=== PATIENT | female | born 2005 | race Hispanic/Latino ===

== ENCOUNTER 2024-11-28 00:08 | Emergency (ER) | payer OTHER ==
--- OUTSIDE RECORDS SUMMARY | 2024-11-28 00:12 | XMS REPORT | Continuity of Care Document ---
Author Name Unknown Address [address] [facility] [address] [place] [address] [facility] [place] Address [address] [facility] [place] [address] Care Team Providers Care Office Coordinator Receptionist Name Role Phone PCP, PATIENT DOES NOT HAVE A Primary Care Physic estrellita Unavailable CHARITY IVEY Attending Clinician Unavailable CHARITY IVEY Attending Clinician Unavailable Charity Ivey MD Attending Clinician [phone], Ad[facility] Attending Clinician Unavailable Margarito Mendes MD Attending Clinician [phone] Only, Ang Db Test Attending Clinician Unavailabl Aminah Castillo Attending Clinician [phone] AMINAH HARRIS Attending Clinician Unavailable Doctor Unassigned, [place] Attending Clinician U navailBridgette Schaeffer Attending Clinician [phone] Tin Barajas Attending Clinician [phone] Pcp, Patient Does Not Have A Attending Clinician Lab, Adc Fam Pob I Attending Clinician Unavailab Mary Sanchez PA-C Attending Clinician [phone] Raju_P Attending Clinician Unavailable Raju_P Admitting Clinician Unavailable Payers Payer Name Policy Type Policy Number Effective Date Expirati on Date Source [employer] MEDICAID [id number] 2012 00:00:00 [place] [id number] 2024 00:00:00 Problems Condition Name Condition Details Condition Category Status Onset Date Resolution Date Last Treatment Date Treating Clinician Comments Source Bipolar disorder Bipolar disorder Disease Active 03-14 00:00: 00 [facility] Headache Headache Disease Active 03-14 00:00: 00 Overview: Formattin g of this note might be different from the original. ICD10 Diagnosis Term [employer] [facility] Vertigo Vertigo Disease Active 03-14 00:00: 00 [facility] Sensorineu ral hearing loss, bilateral Sensorineu ral hearing loss, bilateral Disease Active 03-20 00:00: 00 [facility] Allergies, Adverse Reactions, Alerts Allergy Name Allergy Type Status Severity Reaction(s) Onset Date Inactive Date Treating Clinician Comments Source NO KNOWN ALLERGIE S Drug Class Active [facility] Social History Social Habit Start Date Stop Date Quantity Comments Source ASSERTION 2024-10-04 00:00:00 Not [facility] Al[facility] beverage intake 2024-11-21 00:00:00 2024-11-21 00:00:00 Ex-drinker (finding) [facility] History of Social function 2024-11-08 00:00:00 2024-11-08 00:00:00 [facility] Exposure to SARS-CoV-2 (event) 2021-08-03 00:00:00 2021-09-02 09:32:00 Yes [facility] Sex assigned at 2004 00:00:00 2005 00:00:00 [facility] Smoking Status Start Date Stop Date Source Never smoked tobacco [facility] Medications Ordered Medication Name Filled Medication Name Start Date Stop Date Current Medication? Ordering Clinician Indication Dosage Frequency Signature (SIG) Comments Components Source GUAIFENESIN /CODEINE PHOSPHATE (ROBITUSSIN A-C ORAL) 11-08 15:25: 08 11-08 00:00 :00 No Take by mouth. [facility] methylpheni date (CONCERTA) 54 mg 24 hr tablet 11-08 15:24: 29 11-08 00:00 :00 No 54mg Take 54 mg by mouth every morning. [facility] levoFLOXaci n (LEVAQUIN) tablet 500 mg 03-15 03:00: 00 03-15 02:10 :00 No 500mg 500 mg, Oral, ONCE, 1 dose, 03/14/20 at 2200, GLORY
Re ason for Anti-Infec tive: Empiric Non-Surgic al Prophylaxi s
Durat ion of therapy: 72 hours
S pecific indication : stepped on nail, through sole of shoe [facility] levoFLOXaci n (LEVAQUIN) 500 mg tablet 03-14 00:00: 00 03-18 04:59 :00 No [id number] 500mg Take 1 tablet by mouth every 24 (twenty-fo ur) hours for 3 days. [facility] propranolol (INDERAL) 20 mg tablet 11-11 00:00: 00 11-08 00:00 :00 No [id number] 20mg Take 1 Tab by mouth 2 (two) times daily. [facility] citalopram (CELEXA) 10 mg tablet 2014-08 19:38: 15 Yes [id number] 10mg Take 10 mg by mouth daily. [facility] methylpheni date (CONCERTA) 54 mg 24 hr tablet 2014-08 19:38: 15 Yes 54mg Take 54 mg by mouth every morning. [facility] methylpheni date (CONCERTA) 54 mg 24 hr tablet 2014-08 14:38: 15 Yes 54mg Take 54 mg by mouth every morning. [facility] citalopram (CELEXA) 10 mg tablet 2014-08 14:38: 15 11-08 00:00 :00 No [id number] 10mg Take 10 mg by mouth daily. [facility] ondansetron (ZOFRAN, HYDROCHLORI DE,) 4 mg tablet 2014-08 0-30 00:00: 00 11-08 00:00 :00 No [id number] 4mg Take 1 Tab by mouth every 8 (eight) hours as needed for Nausea and Vomiting (N/V). [facility] melatonin 3 mg tablet 2013-08 16:21: 55 Yes 3mg Take 3 mg by mouth at bedtime. [facility] risperidone (RISPERDAL) 0.5 mg tablet 2013-08 16:21: 55 Yes [id number] .5mg Take 0.5 mg by mouth every evening. [facility] melatonin 3 mg tablet 2013-08 10:21: 55 11-08 00:00 :00 No 3mg Take 3 mg by mouth at bedtime. [facility] risperidone (RISPERDAL) 0.5 mg tablet 2013-08 10:21: 55 11-08 00:00 :00 No [id number] .5mg Take 0.5 mg by mouth every evening. [facility] ferrous sulfate 325 mg (65 mg iron) tablet 03-10 00:00: 00 11-08 00:00 :00 No [id number] 325mg Take 1 Tab by mouth 2 (two) times daily. [facility] GUAIFENESIN /CODEINE PHOSPHATE (ROBITUSSIN A-C ORAL) 01-23 14:45: 05 Yes Take by mouth. [facility] GUAIFENESIN /CODEINE PHOSPHATE (ROBITUSSIN A-C ORAL) 01-23 09:45: 05 Yes Take by mouth. [facility] Vital Signs Vital Name Observation Time Observation Value Comments S dali Systolic blood pressure 2024-11-21 18:12:00 130 mm[Hg] [facility] Diastolic blood pressure 2024-11-21 18:12:00 71 mm[Hg] [facility] Heart rate 2024-11-21 18:12:00 88 /min [facility] Body temperature 2024-11-21 18:12:00 36.56 Brittani [facility] Body height 2024-11-21 18:12:00 154.9 cm [facility] Body weight 2024-11-21 18:12:00 56.065 kg [facility] BMI 2024-11-21 18:12:00 23.35 kg/m2 [facility] Systolic blood pressure 2024-11-08 19:46:00 118 mm[Hg] [facility] Diastolic blood pressure 2024-11-08 19:46:00 72 mm[Hg] [facility] Heart rate 2024-11-08 19:46:00 96 /min [facility] Body temperature 2024-11-08 19:46:00 35.83 Brittani [facility] Body height 2024-11-08 19:46:00 154.9 cm [facility] Body weight 2024-11-08 19:46:00 55.566 kg [facility] BMI 2024-11-08 19:46:00 23.15 kg/m2 [facility] Diastolic blood pressure 2020-10-11 07:42:00 84 mm[Hg] [facility] Heart rate 2020-10-11 07:42:00 89 /min [facility] Body temperature 2020-10-11 07:42:00 36.78 Brittani [facility] Respiratory rate 2020-10-11 07:42:00 16 /min [facility] Body height 2020-10-11 07:42:00 154.9 cm [facility] Body weight 2020-10-11 07:42:00 58.333 kg [facility] BMI 2020-10-11 07:42:00 24.30 kg/m2 [facility] Oxygen saturation in Arterial blood by Pulse oximetry 2020-10-11 07:42:00 100 /min [facility] Systolic blood pressure 2020-10-11 07:42:00 130 mm[Hg] [facility] Systolic blood pressure 2020-03-15 01:08:00 115 mm[Hg] [facility] Diastolic blood pressure 2020-03-15 01:08:00 68 mm[Hg] [facility] Heart rate 2020-03-15 01:08:00 72 /min [facility] Body temperature 2020-03-15 01:08:00 37.22 Brittani [facility] Respiratory rate 2020-03-15 01:08:00 18 /min [facility] Body weight 2020-03-15 01:08:00 56.272 kg [facility] Oxygen saturation in Arterial blood by Pulse oximetry 2020-03-15 01:08:00 99 /min [facility] Procedures Procedure Date / Time Performed Performing Clinician Source OB TRANSVAGINAL 2024-11-21 18:41:43 Adum, Charity Young [facility] REPAIRING [facility]RATOR [facility]INIC ULTRASOUND 2024-11-15 15:50:44 Doctor Unassigned, [place] [facility] OB TRANSVAGINAL 2024-11-08 20:27:17 Adum, Charity Young [facility] POCT URINALYSIS W/O SPECIFIC GRAVITY 2024-11-08 20:14:00 Adum, Charity Young [facility] POCT TEST 2024-11-08 20:00:00 Adum, Charity Young [facility] ASSIGNMENT OF BENEFITS 2021-09-02 15:23:58 Docto r Unassigned, [place] [facility] URINALYSIS 2020-10-11 07:56:00 Bridgette Bolivar [facility] POCT TEST 2020-10-11 07:53:00 Bridgette Bolivar [facility] NOTICE OF PRIVACY PRACTICES 2020-10-11 07:32:09 Doctor Unassigned, [place] [facility] CONSENT/REFUSAL FOR DIAGNOSIS AND TREATMENT 2020-10-11 07:31:48 Doctor Unassigned, [place] [facility] POCT TEST 2020-03-15 01:47:00 Tin Song [facility] XR FOOT 3+ VW LEFT 2020-03-15 01:27:08 Tin Song U [facility] CONSENT/REFUSAL FOR DIAGNOSIS AND TREATMENT 2020-03-15 00:54:06 Doctor Unassigned, [place] [facility] CT TEMPORAL BONES WO CONTRAST 2012-03-22 21:20:00 Margarito Mendes [facility] CT HEAD WO CONTRAST 2012-03-22 21:01:00 Margarito Mendes [facility] Encounters Start Date/Time End Date/Time Encounter Type Admission Type Attending [facility] Care Facility Care Department Encounter ID Source 2021-06-06 03:50:32 Emergency [facility] [id number] [facility] 2021-06-04 11:22:32 Emergency [facility] [id number] [facility] 2024-11-28 15:00:00 2024-11-28 15:00:00 Outpatient R CHARITY IVEY VIVIAN [facility] [id number] [facility] 2024-11-21 14:15:00 2024-11-21 14:15:00 Outpatient R CHARITY IVEY VIV[facility] [id number] [facility] 2024-11-21 13:00:00 2024-11-21 13:15:00 Routine Visit Charity Ivey [place] [id number] 350.1.13.10 4.2.7.2.686 [id number] [facility] 2024-11-12 08:45:00 2024-11-12 09:00:00 Emergency Generator Mechanic Visit 2, Adc Lab AdSandra ferreiraestrellita Young 2, Adc Lab [place] [id number] 350.1.13.10 4.2.7.2.686 [id number] [facility] 2024-11-12 08:45:00 2024-11-12 08:45:00 Outpatient R CHARITY IVEY [facility] [id number] [facility] 2024-11-08 14:30:00 2024-11-08 15:19:29 Outpatient R ADCHARITY FERREIRA [facility] [id number] [facility] 2024-11-08 14:30:00 2024-11-08 15:19:29 Initial Visit Adute Charity Young [facility] 1.114 350.1.13.10 4.2.7.2.686 [id number] [facility] 2012-03-22 00:00:00 2024-09-21 05:15:40 Orders Only Margarito Mendes [facility] [address] 1.2.114 350.1.13.10 4.2.7.2.686 [id number] [facility] 2021-09-02 09:45:00 2021-09-02 10:00:00 Laboratory Only Only, Ang Db Darshan Harris [facility] 1.114 350.1.13.10 4.2.7.2.686 [id number] [facility] 2021-09-02 09:45:00 2021-09-02 09:45:00 Outpatient R KIMBERLY AMINAH [facility] [id number] [facility] 2021-09-02 00:00:00 2021-09-02 00:00:00 Orders Only Doctor Unassigned, [place] [facility] 1.114 350.1.13.10 4.2.7.2.686 [id number] [facility] 2020-10-11 01:45:00 2020-10-11 02:31:00 Emergency Bolivar, Bridgette Espinoza [facility] 1.114 350.1.13.10 4.2.7.2.686 [id number] [facility] 2020-10-11 00:00:00 2020-10-11 00:00:00 Orders Only Doctor Unassigned, [place] [facility] 1..114 350.1.13.10 4.2.7.2.686 [id number] [facility] 2020-03-14 20:11:00 2020-03-14 21:33:00 Emergency Tin Song [facility] [id number] 350.1.13.10 4.2.7.2.686 [id number] [facility] 2020-03-14 00:00:00 2020-03-14 00:00:00 Orders Only Doctor Unassigned, [place] [facility] 1.840.114 350.1.13.10 4.2.7.2.686 [id number] [facility] 2020-02-14 00:00:00 2020-02-14 00:00:00 Telephone Pcp, Patient Does Not Have A [facility] 1.0.114 350.1.13.10 4.2.7.2.686 [id number] [facility] 2020-02-12 17:00:00 2020-02-12 17:00:00 Outpatient R [facility] [id number] [facility] 2020-02-12 15:39:19 2020-02-12 15:59:19 Laboratory Only Lab, Adc Fam Mary Casas [facility] 1.114 350.1.13.10 4.2.7.2.686 [id number] [facility] 2019-11-04 04:59:00 2019-11-04 04:59:00 Outpatient Raju_P [facility] [id number] [facility] Results Test Description Test Time Test Comments Results Resul t Comments Source REPAIRING CALIBRATOR CLIN[facility] ULTRASOUND 2024-11-15 15:50:44 Ordered by an unspecified provider. [facility] [id number] 20:00:00* Test Item Value Reference Range Interpretation Comme nts POCT PREG (test code = 1605) Positive On board controls acceptable with C Line (test code = 3574) Yes POCT PREG LOT # (test code = 3575) POCT PREG TEST DATE ( test code = 357) [facility]16:17* Test Item Value Reference Range Interpretation Comme nts APPEARANCE (test code = 7325043974) Clear Clear COLOR (test code = 2062494955) Yellow Yellow PH (test code = 9433061559) 4.8-8.0 SP GRAVITY (test code = 5902077689) 1.003-1.030 GLU U QUAL (test code = 4547176492) Normal Normal BLOOD (test code = 0597859301) 3+ Negative A KETONES (test code = 0480989265) Negative Negative PROTEIN (test code = 2887-8) Negative Negative UROBILIN (test code = 5515121113) Normal Normal BILIRUBIN (test code = 8045238120) Negative Negative NITRITE (test code = 1230913717) Negative Negative LEUK CRISSY (test code = 2814238473) Negative Negative RBC/HPF (test code = 4010479465) See_Comment H [Automated [employer] ge] The system which generated this result transmitted reference range: 0 - 3 HPF. The reference range was not used to interpret this result as normal/abnormal. WBC/HPF (test code = 9876872961) See_Comment [Automated [employer] ge] The system which generated this result transmitted reference range: 0 - 5 HPF. The reference range was not used to interpret this result as normal/abnormal. BACTERIA (test code = 9534920496) Few Negative A MUCOUS (test code = 1776917985) Slight Negative LPF A SQ EPITH (test code = 4227298002) <1 HPF Lab Interpretation (test code = 16141-3) Abnormal [facility] [id number] 07:53:00* Test Item Value Reference Range Interpretation Comme nts POCT PREG (test code = 1605) negative On board controls acceptable with C Line (test code = 3574) positive POCT PREG LOT # (test code = 3575) [id number] POCT PREG TEST DATE ( test code = 3576) 05/06/2022 Lab Interpretation (test cod e = 32529-1) Normal [facility]+ VW [id number] 01:48:36Small cluster of punctate foreign bodies within the plantar soft tissuesbetween the distal shaft ofthe left first and second metatarsals. No acuteosseous abnormality. RL: 3535AFC: [id number] ORDERING PROVIDER: Tin Song T HISTORY: stepped on nail, self removed, check for fb/frx ? EXAM: Left foot x-ray TECHNIQUE: Frontal, oblique and lateralviews of the left foot. Frontal,oblique, and lateral views of the right foot were also obtained forcomparison. COMPARISON: None FINDINGS: There is a small cluster of punctate foreign bodies within the plantar softtissues between the distal shafts of the left first and second metatarsals.There is no acute fracture or dislocation in either foot. The joint spacesare preserved. No discrete osseous erosions. [facility], Radiant Results Inft User - 03/14/2020 8:49 PM CDTORDERING PROVIDER: Tin Song, THISTORY: stepped on nail, self removed, check for fb/frx EXAM: Left foot x-rayTECHNIQUE: Frontal, oblique and lateral views of the left foot. Frontal,oblique, and lateral views of the right foot were also obtained forcomparison.COMPARISON: NoneFINDINGS: There is a small cluster of punctate foreign bodies within the plantar softtissues between the distal shafts of the left first and second metatarsals.There is no acute fracture or dislocation in either foot. The joint spacesare preserved. No discrete osseous erosions.IMPRESSIONSmall cluster of punctate foreign bodies within the plantar soft tissuesbetween the distal shaft of the left first and second metatarsals. No acuteosseous abnormality.RL: 3535AFC: [id number] signed by Wiley More DO at 03/14/2020 8:48 [facility] PO[facility] [id number] 01:47:00* Test Item Value Reference Range Interpretation Comme nts POCT PREG (test code = 1605) negative On board controls acceptable with C Line (test code = 3574) yes POCT PREG LOT # (test code = 3575) [id number] POCT PREG TEST DATE ( test code = 3576) 05/06/2021 Lab Interpretation (test cod e = 64507-7) Normal [facility] OTHER [facility]/O [id number] 21:56:00 CT HEAD OTHER W/O CONTRAST*.*.*.*.*.*.*.*.*.*.*.*.*.*FINAL*.*.*.*.*.*.*.*.*.*.*.*.*.*.*CT TEMPORAL BONES WITHOUT CONTRAST HISTORY: Bilateral sensorineural hearing loss and new onset dizziness,headaches and falling for the past 3 weeks COMPARISON: ?None TECHNIQUE: ?Thin slice CT acquisition of the temporal bones has been obtainedwithout intravenous contrast administration. Coronal and sagittalrecon structions were obtained. FINDINGS: RIGHT TEMPORAL BONE: The external auditory canal is normal. ?The tympanic membrane is intact. ?Theossicular chain appears normal. ?The Prussaks space is clear. ?The scutum isnormal. ?The cochlea is normal. ?Semicircular canals and inner ear structuresare intact. The vestibular aqueduct is not dilated. The facial nerve canal is intact. The mastoid air cells are clear. LEFT TEMPORAL BONE: The external auditory canal is normal. ?The tympanic membrane is intact. ?Theossicular chain appears normal. ?The Prussaks space is clear. ?Scutum isnormal. ?The cochlea is normal. ?Semicircular canals and inner ear structuresare intact. The vestibular aqueduct is not dilated. The facial nerve canal is intact. The mastoid air cells are clear. IMPRESSION: [facility]remarkable examination of the [facility] [id number] 21:51:00CT HEAD W/O CONTRAST*.*.*.*.*.*.*.*.*.*.*.*.*.*FINAL*.*.*.*.*.*.*.*.*.*.*.*.*.*.*CT HEAD WITHOUT CONTRAST-PEDI Comparison: None available History: S/SX, Dx: Justine Saha is a 6 year old female with bilateralsensorineural hearing loss and new onset dizziness, headaches, and falling overthe past three weeks. Findings: No hemorrhage, mass or mass effect is identified. No extra-axial intra-ax ialfluid collection is identified. The ventricles are normal in size. The cisternsare normal in appearance. The rose-white matter differentiation is normal. The paranasal and mastoid air cells are clear. Orbits and retro-orbital structures are unremarkable. Impression: No acute intracranial abnormality.RAD [facility] Notes Date/Time Note Provider Source 2024-11-12 08:45:00 Images from the original note were not included. Venipuncture collection performed by clean technique on the left anticubitus. Total of 1 attempts were made. Slight pressure and a bandage/dressing were applied to the site(s). The patient experienced no complications. The following specimens were processed according to instructions and sent to [facility] laboratories per lab order on 11/12/2024: LT BLUE SST 3 RED 1 LAV 3 PPT DK GREEN (LiHep) DK GREEN (SodH) ROSE DK BLUE (K2) DK BLUE (S) ACD Blood Culture NIPT/NTD Urine was collected at appointment with provider. [facility] - [employer] 2024-11-08 14:30:00 Age: [age] year old GA: 7w0d NOB Justine Saha is a 19 yo at 7w0d by LMP presents for Initial OB visit today. Patient is sure of her LMP think it was in February. Denies vaginal bleeding, abdominal pain or cramps. She reports some nausea with vomiting but improves with regular small meals. 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 She denies domestic violence/immediate partner violence. Sonogram confirmed an IUP at 7w0d gestation. Subchorionic hemorrhagia seen Assessment/Plan Encounter for supervision of normal first in first trimester (primary encounter diagnosis) Less than 8 weeks gestation of Positive test Discussed do's and don'ts of , safe foods, safe medications. NOB folder given We discussed course, labs, aneuploidy and genetic carrier screening and ultrasounds. Expectations for weight gain this include 20-30 pounds. Exercise in discussed and encouraged. aneuploidy options were reviewed including NIPT: cFDNA test and 2nd trimester QUAD screen. The benefits and short falls of these screening tests were reviewed. Also discussed diagnostic tests: CVS vs amniocentesis. Opted for [place] and [facility] genetic carrier screening Reviewed Zika virus precautions .Discussed about COVID-19/flu precautions. Social distancing, frequent hand washings, signs/symptoms for testing and to follow CDC recommendations discussed. I discussed the call schedule and that I deliver here at [facility]. I discussed that I have two partners, Dr. Hankins and Dr. Roach and that they may deliver her or take care of her during her . I discussed that at [facility] we do not have a NICU, and that high risk pregnancies or deliveries less than 36 weeks will be transferred to [place]. All questions were answered. NOB labs today precautions reviewed Encouraged to call if have any additional questions or concerns. Plan: POCT Urinalysis w/o Specific [place], POCT Test, [facility] or [place] Only - Rpr, Cbc with Diff, Gc & Chlamydia Amplified Assay, Hcv Antibody, Hepatitis B Surface Antigen, HIV 1/2 Ag-Ab with Reflex, Workup, Blood Bank, Rubella Screen IgG, Trichomonas Amplified Assay, Urine Culture, Urine Drug (Immunoassay) - Comprehensive Drug Screen, VZV Antibody Screen, Glycosylated Hemoglobin (A1C), Gc & Chlamydia Amplified Assay, Trichomonas Amplified Assay, Urine Drug (Immunoassay) - Comprehensive Drug Screen Subchorionic hemorrhage in first trimester - reviewed finding with the patient - Precautions given on bleeding - RTC for 2 weeks for follow up scan Encounter to determine viability of , single or unspecified fetus Plan: OB Ultrasound Transvaginal Return to clinic in 4 weeks. Reviewed patient instructions and provided printed copy. Future Appointments In 4 days 2, Adc Lab [facility], [facility], [facility] In 1 week Charity Ivey MD [facility], [facility] Charity Ivey MD 11/08/2024 3:35 PM [facility]
[2024-11-28 01:27] LABS: Specific Gravity 1.009 (1.005-1.030); Sqamous Epithelial None Seen /HPF (None Seen); Urine Bacteria None Seen /HPF (<20); Urine Bilirubin NEGATIVE (Negative); Urine Blood Negative (Negative); Urine Clarity Extremely Turbid (Clear); Urine Color Colorless (Yellow); Urine Culture Reflex Order REFLEXED; Urine Glucose NEGATIVE (Negative); Urine Ketones NEGATIVE (Negative); Urine Microscopic Reflex YN ORDER UMIC; Urine Nitrite NEGATIVE (Negative); Urine Protein NEGATIVE (Negative); Urine RBC None Seen /HPF (None Seen); Urine Urobilinogen Normal (Normal); Urine WBC None Seen /HPF (<5); Urine pH 7.5 (5.0-7.0)
[2024-11-28 01:31] LABS: Absolute Eosinophils 0.1 K/uL (0-0.5); Absolute Lymphocytes (CBC) 3.2 K/uL (0.7-4.9); Absolute Monocytes 0.6 K/uL (0.1-1.3); Absolute Neutrophil 5.5 K/uL (1.8-8.0); Basophils % 0.2 % (0-1.3); Eosinophils % 0.7 % (0-4.4); Hematocrit 36.8 % (36.0-45.0); Hemoglobin 12.6 g/dL (12.0-15.0); Lymphocytes % 33.9 % (15.3-44.8); MCH 30.3 pg (27.0-35.0); MCHC 34.3 g/dL (32.0-36.0); MCV 88.2 fL (80-100); MPV 8.9 fL (7.6-11.3); Monocytes % 6.4 % (3.3-12.3); Neutrophils % 58.8 % (41.7-73.7); Platelets 286 thou/uL (152-406); RBC Red Blood Cell Count 4.17 M/uL (3.86-4.86); Red Cell Distribution Width 12.8 % (12.1-15.2)
[2024-11-28] MEDS ORDERED: HYDROCODONE/APAP 5/325 MG TAB ONE (01:52)
[2024-11-28 02:01] LABS: Anion Gap 7.4 mEq/L (5.0-15.0); Potassium 3.4 mEq/L (3.5-5.1)
--- NOTE | 2024-11-28 03:10 | EDPHYS ---
Physician Documentation [facility] Name: Justine Saha Age: 19 yrs Sex: Female : 2005 Arrival Date: 11/28/2024 Time: 00:08 Bed 5 Private MD: ED Physician Roberto Sommers HPI: 11/28 03:05 This 19 yrs old Female presents to ER via Ambulatory with complaints of Back rn Pain, Pt is 9weeks preg pt states no heartbeat. 03:05 The patient presents with pain that is acute. The symptoms are located in the low back. rn Associated signs and symptoms: Pertinent negatives: dysuria, fever, hematuria, incontinence, numbness, tingling, urinary retention. Severity of symptoms: At their worst the symptoms were moderate, in the emergency department the symptoms are unchanged. The patient has experienced similar episodes in the past. G1, P0 at approximately 9 weeks reports lower back cramping and pain that is worse with movement and palpation. Patient was seen last week by her OB and was diagnosed with miscarriage/ demise. Was given a week to pass naturally. Patient has appointment with her OB tomorrow for next step. Denies any vaginal discharge or bleeding or leakage of fluid. No abdominal pain or cramping in lower abdomen. No fever or chills. States has been having back pain this entire time just got worse last night.. 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 Ivey that al5 she had a miscarriage Historical: - Allergies: 00:48 No Known Allergies; al5 - PMHx: 00:48 None; al5 - PSHx: 00:48 None; al5 - Immunization history:: Adult Immunizations up to date. - Infectious Disease History:: Denies. - Social history:: Smoking status: Patient denies any tobacco usage or history of. - Family history:: not pertinent. - Hospitalizations: : No recent hospitalization is reported. 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 No pulse deficits. Abdomen/GI: Soft, nontender, no peritoneal signs or guarding Back: No spinal tenderness or CVA tenderness. Mild tenderness lower perispinal lumbar pain, reproducible pain with palpation along muscles Vital Signs: 00:47 BP 113 / 70; Pulse 68; Resp 16; Temp 98.5; Pulse Ox 99% on R/A; Weight 55.79 kg; Height al5 5 ft. 1 in. ; 01:00 BP 118 / 76; Pulse 73; Resp 16; Pulse Ox 100% on R/A; dd2 02:00 BP 115 / 68; Pulse 63; Resp 15; Pulse Ox 99% on R/A; dd2 03:00 BP 112 / 65; Pulse 65; Resp 16; Temp 98.2; Pulse Ox 100% on R/A; dd2 03:30 BP 109 / 64; Pulse 63; Resp 16; Pulse Ox 100% on R/A; dd2 00:47 Body Mass Index 23.24 (55.79 kg, 154.94 cm) al5 MDM: 00:12 Medical Screening Exam initiated rn 03:05 Differential diagnosis: demise, missed , musculoskeletal pain. Data rn reviewed: vital signs, nurses notes, lab test result(s), radiologic studies, ultrasound, and as a result, I will discharge patient. Consideration of Admission/Observation Escalation of care including admission/observation considered. Admission and/or transfer considered but patient has appointment with her OB this morning already. No acute changes. Patient had known demise and still shows demise on ultrasound. Patient understands risk of infection with retained fetus/products.. Counseling: I had a detailed discussion with the patient and/or guardian regarding the historical points, exam findings, and any diagnostic results supporting the discharge/admit diagnosis, lab results, radiology results, the need for outpatient follow up, to return to the emergency department if symptoms worsen or persist or if there are any questions or concerns that arise at home. Response to treatment: the patient's symptoms have mildly improved after treatment, and as a result, I will discharge patient. 11/28 00:19 Order name: Urinalysis w/ reflexes; Complete Time: 02:28 rn 11/28 00:38 Order name: Quantitative Hcg; Complete Time: 02:28 rn 11/28 00:38 Order name: CBC with Diff; Complete Time: 02:28 rn 11/28 00:38 Order name: Basic Metabolic Panel; Complete Time: 02:28 rn 11/28 01:38 Order name: Urine Culture EDMS 11/28 01:23 Order name: Transvaginal OB EDMS 11/28 00:38 Order name: IV Start; Complete Time: 01:04 rn Administered Medications: 01:56 Drug: HYDROcodone-acetaminophen PO 5 mg-325 mg 1 tabs PO once Route: PO; al5 02:30 Follow up: Response: No adverse reaction dd2 03:15 Drug: Cyclobenzaprine PO 10 mg PO once Route: PO; dd2 03:32 Follow up: Response: No adverse reaction dd2 Disposition Summary: 11/28/24 03:10 Discharge Ordered Notes: Location: Home rn Problem: an ongoing problem rn Symptoms: have improved rn Condition: Stable rn Diagnosis - demise rn - Low back pain rn Followup: rn - With: Private Physician - When: Tomorrow - Reason: Recheck today's complaints, Re-evaluation by your physician Discharge Instructions: - Discharge Summary Sheet rn - Acute Back Pain, Adult rn - Musculoskeletal Pain rn - Miscarriage rn Forms: - Medication Reconciliation Form rn - Antibiotic international 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 EDTN EDMS 00:39 00:39 CBC+H.LAB.BRZ ordered. EDTN EDMS 00:39 00:39 BASIC METABOLIC PANEL+C.LAB.BRZ ordered. EDTN EDMS 01:23 00:31 OB Limited+US.RAD.BRZ ordered. EDTN EDMS 03:07 03:05 Constitutional: Negative for fever, chills, and weight loss, Cardiovascular: rn Negative for chest pain, palpitations, and edema, Respiratory: Negative for shortness of breath, cough, wheezing, and pleuritic chest pain, Abdomen/GI: Negative for abdominal pain, nausea, vomiting, diarrhea, and constipation, Back: Positive for lower back cramping and pain rn
--- NOTE | 2024-11-28 03:10 | ER ---
Nurse's Notes [facility] Name: Justine Saha Age: 19 yrs Sex: Female : 2005 Arrival Date: 11/28/2024 Time: 00:08 Bed 5 Private MD: Diagnosis: demise;Low back pain Presentation: 11/28 00:47 Chief complaint: Patient states: c/o lower back pain x2-3 days, states when she lays on al5 her stomach it becomes pain in the upper back. states she went to Dr. Ivey and was told she was having a miscarriage last . Coronavirus screen: At this time, the client does not indicate any symptoms associated with coronavirus-19. Ebola Screen: No symptoms or risks identified at this time. Initial Sepsis Screen: Does the patient meet any 2 criteria? No. Patient's initial sepsis screen is negative. Does the patient have a suspected source of infection? No. Patient's initial sepsis screen is negative. Risk Assessment: Do you want to hurt yourself or someone else? Patient reports no desire to harm self or others. Onset of symptoms was November 25, 2024. 00:47 Method Of Arrival: Ambulatory al5 00:47 Acuity: FRANK 3 al5 Triage Assessment: 00:50 General: Appears in no apparent distress. uncomfortable, Behavior is calm, cooperative. al5 Pain: Complains of pain in low back area. EENT: No signs and/or symptoms were reported regarding the EENT system. Neuro: Level of Consciousness is awake, alert, obeys commands, Oriented to person, place, time, situation. Cardiovascular: Capillary refill < 3 seconds Patient's skin is warm and dry. Respiratory: Airway is patent Respiratory effort is even, unlabored, Respiratory pattern is regular, symmetrical. GI: Abdomen is flat, non-distended. : No signs and/or symptoms were reported regarding the genitourinary system. Derm: Skin is intact, is healthy with good turgor, Skin is pink, warm \T\ dry. normal. Musculoskeletal: Range of motion: intact in all extremities, Reports pain in low back area. 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 Ivey that al5 she had a miscarriage Historical: - Allergies: 00:48 No Known Allergies; al5 - PMHx: 00:48 None; al5 - PSHx: 00:48 None; al5 - Immunization history:: Adult Immunizations up to date. - Infectious Disease History:: Denies. - Social history:: Smoking status: Patient denies any tobacco usage or history of. - Family history:: not pertinent. - Hospitalizations: : No recent hospitalization is reported. Screenin:51 [facility] ED Fall Risk Assessment (Adult) History of falling in the last 3 months, al5 including since admission No falls in past 3 months (0 pts) Confusion or Disorientation No (0 pts) Intoxicated or Sedated No (0 pts) Impaired Gait No (0 pts) Mobility Assist Device Used No (0 pt) Altered Elimination No (0 pt) Score/Fall Risk Level 0 - 2 = Low Risk Oriented to surroundings, Maintained a safe environment, Hourly rounding (assess needs \T\ fall precautionary measures) done. Abuse screen: Denies threats or abuse. Denies injuries from another. Nutritional screening: No deficits noted. Tuberculosis screening: No symptoms or risk factors identified. Assessment: 00:51 Reassessment: see triage assessment. al5 02:00 Reassessment: Patient appears in no apparent distress at this time. No changes from al5 previously documented assessment. Patient and/or family updated on plan of care and expected duration. Pain level reassessed. Patient is alert, oriented x 3, equal unlabored respirations, skin warm/dry/pink. Vital Signs: 00:47 BP 113 / 70; Pulse 68; Resp 16; Temp 98.5; Pulse Ox 99% on R/A; Weight 55.79 kg; Height al5 5 ft. 1 in. ; 01:00 BP 118 / 76; Pulse 73; Resp 16; Pulse Ox 100% on R/A; dd2 02:00 BP 115 / 68; Pulse 63; Resp 15; Pulse Ox 99% on R/A; dd2 03:00 BP 112 / 65; Pulse 65; Resp 16; Temp 98.2; Pulse Ox 100% on R/A; dd2 03:30 BP 109 / 64; Pulse 63; Resp 16; Pulse Ox 100% on R/A; dd2 00:47 Body Mass Index 23.24 (55.79 kg, 154.94 cm) il5 ED Course: 00:12 Patient arrived in ED. gm2 00:12 Roberto Sommers MD is Attending Physician. rn 00:46 Saba Dickson, NADIA is Primary Nurse. al5 00:48 Triage completed. al5 00:51 Arm band placed on right wrist. Patient placed in the treatment room, in view of staff al5 members, on pulse oximetry. 00:51 Patient has correct armband on for positive identification. Bed in low position. Call al5 light in reach. Side rails up X2. Provided Education on: plan of care. 00:52 No provider procedures requiring assistance completed. al5 00:59 Urinalysis w/ reflexes Sent. f 01:00 Urine collected: clean catch specimen, clear. [facility] 01:04 Inserted saline lock: 22 gauge in left antecubital area, using aseptic technique. Blood al5 collected. Flushed with 10 mL NS. 01:23 Transvaginal OB In Process Unspecified. EDMS 03:30 IV discontinued, intact, bleeding controlled, No redness/swelling at site. Pressure dd2 dressing applied. Administered Medications: 01:56 Drug: HYDROcodone-acetaminophen PO 5 mg-325 mg 1 tabs PO once Route: PO; al5 02:30 Follow up: Response: No adverse reaction dd2 03:15 Drug: Cyclobenzaprine PO 10 mg PO once Route: PO; dd2 03:32 Follow up: Response: No adverse reaction dd2 Medication: 00:51 VIS not applicable for this client. al5 Outcome: 03:10 Discharge ordered by . rn 03:30 Discharged to home ambulatory, dd2 03:30 Condition: stable 03:30 Discharge instructions given to patient, Instructed on discharge instructions, follow up and referral plans. Demonstrated understanding of instructions, follow-up care, 03:36 Patient left the ED. dd2 Signatures: Dispatcher [employer] EDMS Roberto Sommers MD MD rn Mitchell, Ginger 2 Casie Dennis [facility] Saba Dickson RN RN al5 AQUILES MILES RN RN dd2
[2024-11-28] MEDS ORDERED: CYCLOBENZAPRINE 10 MG TAB ONE (03:14)
[2024-11-28 03:45] VITALS: TEMP 98.2; O2SAT 100
[2024-11-28 03:46] VITALS: BP 109/64
--- NOTE | 2024-11-28 07:03 | RAD REPORT ---
EXAM: US , Transvaginal CLINICAL HISTORY: confirmed miscarriage 1 week ago with no FHT, increased pain TECHNIQUE: Real-time transvaginal obstetrical ultrasound of the maternal pelvis and a first trimester with image documentation. Transvaginal imaging was used for better evaluation of the fetus and adnexa. COMPARISON: No relevant prior studies available. FINDINGS: Gestation: Single intrauterine gestational sac low in position at the mid uterine level. The crown- rump length measures 19.7 mm corresponding to an estimated gestational age of 8 weeks 4 days. No demonstrable cardiac activity. Uterus/cervix: The uterus is anteverted and measures 7.3 x 5 x 6.7 cm. No myometrial mass. Ovaries: Neither ovary is visualized. No mass. Free fluid: No free fluid. IMPRESSION: 1. demise. The gestational sac is low in position. 2. Estimated gestational age is 8 weeks 4 days. Electronically signed by: Miguel Barreto MD 11/28/2024 02:41 AM CDT Due to temporary technical issues with the PACS/Smappo reporting system, reports are being yessica d by the in-house radiologist without review as a courtesy to ensure prompt reporting the interpreting radiologist is fully responsible for the content of the report. Transcribed Date/Time: 11/28/2024 7:03 AM
== END 2024-11-28 03:36 | disposition home or self-care (01) ==
LOC: ER 00:08
DX: O36.4XX0 Maternal care for intrauterine death, not applicable or unspecified (principal); M54.50 Low back pain, unspecified
CPT/HCPCS: 36415; 76817; 80048; 81001; 84702; 85025; 87086; 87088; 99284